=== PATIENT | female | born 1960 | race Caucasian/White ===

== ENCOUNTER 2018-05-15 14:11 | Emergency (ER) | payer SELFPAY | END 2018-05-15 14:21 | disposition home or self-care (01) | LOC: ERS 14:11 | DX: B02.9 Zoster without complications (principal); E03.9 Hypothyroidism, unspecified; E78.5 Hyperlipidemia, unspecified; I10 Essential (primary) hypertension; G47.30 Sleep apnea, unspecified; F32.9 Major depressive disorder, single episode, unspecified; Z79.899 Other long term (current) drug therapy | CPT/HCPCS: 99282 ==

== ENCOUNTER 2019-03-05 13:30 | Observation (INO) | payer OTHER, SELFPAY ==
[2019-03-05 14:04] LABS: #Eosinphils 0.2 thou/uL (0.0-0.7); #Lymphocytes 2.8 thou/uL (1.20-3.40); #Monocytes 0.5 thou/uL (0.11-0.59); #Neutrophils 4.7 thou/uL (1.40-6.50); %Basophils 0.5 % (0.0-1.0); %Eosinophils 2.6 % (0.0-10.0); %Lymphocytes 33.6 % (21.0-51.0); %Monocytes 6.3 % (0.0-10.0); %Neutrophils 56.9 % (42.0-75.0); Hemoglobin 14.6 g/dL (12.0-16.0); Mean Corpuscular HGB CONC 32.4 g/dL (32.0-36.0); Mean Corpuscular Hemoglobin 27.8 pg (27.0-31.0); Mean Corpuscular Volume 85.8 fL (78.0-98.0); Mean Platelet Volume 8.3 fL (7.4-10.4); Platelet Count 241 thou/uL (130-400); Red Blood Cell (RBC) Count 5.28 mill/uL (4.20-5.40); White Blood Cell (WBC) Count 8.2 thou/uL (4.8-10.8)
[2019-03-05 14:28] LABS: ALT (SGPT) 34 U/L (8-55); AST (SGOT) 27 U/L (5-34); Albumin 4.5 g/dL (3.5-5.0); Alkaline Phosphatase 76 U/L (40-150); Anion Gap 11 mmol/L (10-20); BUN (Urea Nitrogen) 21 mg/dL (9.8-20.1); Bilirubin, Total 0.4 mg/dL (0.2-1.2); Calc. Creatinine Clearance 0 mL/min (70-130); Calcium 10.3 mg/dL (7.8-10.44); Carbon Dioxide 26 mmol/L (22-29); Chloride 105 mmol/L (98-107); Estimated GFR-MDRD 60; Globulin 2.8 g/dL (2.4-3.5); Glucose 123 mg/dL (70-105); Potassium 3.8 mmol/L (3.5-5.1); Protein, Total 7.3 g/dL (6.0-8.3); Sodium 138 mmol/L (136-145)
--- NOTE | 2019-03-05 14:37 | RAD ---
PORTABLE CHEST 1 VIEW: Date: 03/05/19 Time: 1343 hours HISTORY: Chest pain. FINDINGS: There are no previous exams for comparison. The heart size is normal. No confluent areas of consolidation, pneumothoraces, or pleural effusions a re seen. IMPRESSION: No radiographic evidence of acute cardiopulmonary process. POS: OFF
[2019-03-05] MEDS ORDERED: Aspirin Chewable 81 MG TAB ONE (15:08)
[2019-03-05 17:15] LABS: Troponin I Less than 0.010 ng/mL (< 0.028)
[2019-03-05] MEDS ORDERED: Lidocaine 2% Viscous Solution 10 ML, Aluminum & Magnesium Hydroxide 30 ML SSW SCH (17:30)
[2019-03-05] MEDS ORDERED: Bisacodyl 5 MG TAB PO PRN (17:39)
[2019-03-05] MEDS ORDERED: Acetaminophen 325 MG TAB PO PRN (17:39)
[2019-03-05] MEDS ORDERED: NIFEdipine XL 60 MG TAB PO SCH (17:45)
--- NOTE | 2019-03-05 18:00 | HP ---
PRIMARY CARE PROVIDER: Dr. Alfonso Neri in [place]. CHIEF COMPLAINT: Epigastric pain. HISTORY OF PRESENT ILLNESS: Ms. Alvarado is a pleasant 58-year-old lady who was seen at [facility] on March 05, 2019. She reports that she started having epigastric pain yesterday. She describes it as a burning sensation. It was 10/10 at its worst, subsequently improved to 6/10. It was radiating to the back. It started around 9 p.m. when she could not lie down because of the pain. She also reports her diaphoresis. She denies any fevers or chills. She denies any nausea or vomiting. She never had this kind of pain in the past. She denies any shortness of breath or palpitations. REVIEW OF SYSTEMS: All other systems were reviewed and found to be negative. PAST MEDICAL HISTORY: Hypothyroidism, dyslipidemia, hypertension, and obstructive sleep apnea syndrome. PAST SURGICAL HISTORY: Carpal tunnel surgery, third left foot digit surgery, hysterectomy, and tubal ligation. PSYCHIATRIC HISTORY: Depression. SOCIAL HISTORY: The patient denies tobacco use, alcohol use, or recreational drug use. FAMILY HISTORY: Heart problems in her mother's side of family. ALLERGIES: NO KNOWN DRUG ALLERGIES. CURRENT MEDICATIONS: 1. Aspirin 81 mg daily. 2. Levothyroxine 50 mcg daily. 3. Lisinopril/hydrochlorothiazide 100/12.5 mg daily. 4. Trazodone 50 mg at bedtime. 5. Duloxetine 60 mg 2 times a day. PHYSICAL EXAMINATION: GENERAL: On examination, Ms. Alvarado is awake and alert, not in acute distress. VITAL SIGNS: Blood pressure is 128/79, pulse 63, respiratory rate 16, and oxygen saturation 95% on room air. She is afebrile. HEENT: Eyes, no scleral icterus, no conjunctival pallor. ENT, moist mucosal membranes. No oropharyngeal erythema or exudates. NECK: Supple, nontender, trachea is midline. RESPIRATORY: Accessory muscles of breathing are not active. Chest wall movements are symmetric bilaterally. Lungs are clear to auscultation without wheeze, rhonchi, or crepitations. CARDIOVASCULAR: S1 and S2 are heard, regular. Peripheral pulses palpable. No carotid bruit. No pericardial rub. ABDOMEN: Mild epigastric tenderness. No guarding or rigidity. Bowel sounds heard, no hepatomegaly, no splenomegaly. NEUROLOGIC: Cranial nerves 2 through 12 intact, deep tendon reflexes 2+. MUSCULOSKELETAL: Power is 5/5 in all 4 extremities. SKIN: No rashes or subcutaneous nodules. She has bilateral lower extremity edema. LYMPHATIC: No cervical lymphadenopathy. PSYCHIATRIC: Normal mood, normal affect, the patient is oriented to person, place, and time. LABORATORY DATA: Ms. Alvarado'akil labs and investigations were reviewed. I reviewed her electrocardiogram which shows normal sinus rhythm, no ST changes to suggest acute coronary syndrome. I also reviewed her chest x-ray which does not show any pulmonary infiltrates. She has normal CBC, unremarkable comprehensive metabolic profile, and troponin-I that is negative x2. Lipase is normal. ASSESSMENT AND PLAN: Ms. Alvarado is a pleasant 58-year-old lady who was seen at [facility] on March 05, 2019. Her problem list includes: 1. Epigastric pain: Ms. Alvarado is presenting with epigastric pain of 1 day duration, etiology is unclear at this time. Most likely secondary to gastritis, will trial GI cocktail. Alternatively, could be atypical presentation of acute coronary syndrome, will check stress test. Differential also includes acute pancreatitis, although the lipase level is normal. We will check upper abdominal ultrasound to rule out any pancreatic or gallbladder lesions. 2. Hypothyroidism: Continue Synthroid. 3. Hypertension: Continue home medications, monitor vital signs, and titrate antihypertensives as needed. 4. Depression: Moderate, stable, continue duloxetine. Many thanks for allowing me to participate in your patient's care. Please feel free to contact me with any questions or concerns. LEVEL OF RISK: High. LEVEL OF COMPLEXITY: High. Job ID: [id number]
[2019-03-05 18:04] VITALS: BMI 37.0
[2019-03-05 20:28] LABS: Troponin I Less than 0.010 ng/mL (< 0.028)
[2019-03-05] MEDS ORDERED: traZODone HCl 50 MG TAB PO SCH (21:00)
[2019-03-05] MEDS ORDERED: hydrALAZINE 25 MG TAB PO SCH (21:00)
[2019-03-05] MEDS ORDERED: Isosorbide Dinitrate 20 MG TAB PO SCH (21:00)
[2019-03-06 04:51] LABS: #Eosinphils 0.2 thou/uL (0.0-0.7); #Monocytes 0.5 thou/uL (0.11-0.59); #Neutrophils 3.1 thou/uL (1.40-6.50); %Basophils 0.8 % (0.0-1.0); %Eosinophils 3.1 % (0.0-10.0); %Lymphocytes 34.8 % (21.0-51.0); %Monocytes 7.8 % (0.0-10.0); %Neutrophils 53.4 % (42.0-75.0); Hemoglobin 14.6 g/dL (12.0-16.0); Mean Corpuscular HGB CONC 32.3 g/dL (32.0-36.0); Mean Corpuscular Hemoglobin 28.1 pg (27.0-31.0); Mean Corpuscular Volume 87.1 fL (78.0-98.0); Mean Platelet Volume 8.4 fL (7.4-10.4); Platelet Count 222 thou/uL (130-400); White Blood Cell (WBC) Count 5.8 thou/uL (4.8-10.8)
[2019-03-06 05:11] LABS: Anion Gap 11 mmol/L (10-20); BUN (Urea Nitrogen) 18 mg/dL (9.8-20.1); Calc. Creatinine Clearance 116 mL/min (70-130); Calcium 9.7 mg/dL (7.8-10.44); Carbon Dioxide 29 mmol/L (22-29); Chloride 103 mmol/L (98-107); Estimated GFR-MDRD 68; Glucose 140 mg/dL (70-105); Potassium 4.4 mmol/L (3.5-5.1); Sodium 139 mmol/L (136-145)
[2019-03-06] MEDS ORDERED: Levothyroxine Sodium 50 MCG TAB PO SCH (06:00)
[2019-03-06] MEDS ORDERED: Carvedilol 25 MG TAB PO SCH (08:00)
[2019-03-06 08:20] VITALS: TEMP 98.1
--- NOTE | 2019-03-06 08:23 | ULT ---
GALLBLADDER ULTRASOUND: CLINICAL HISTORY: Epigastric pain. COMPARISON: No prior comparison. FINDINGS: No focal hepatic lesion. The gallbladder is unremarkable. No evidence of ascites. The common duct measures 3 mm in caliber. There is increased echogenicity of the hepatic parenchyma. IMPRESSION: 1. No acute gallbladder pathology. 2. Findings which may relate to hepatic steatosis. Correlate with liver function enzymes. POS: LAURAK
[2019-03-06] MEDS ORDERED: Losartan 25 MG TAB PO SCH (09:00)
[2019-03-06] MEDS ORDERED: Aspirin 325 mg Enteric Coated Tablet PO SCH (09:00)
[2019-03-06] MEDS ORDERED: DULoxetine 60 MG CAP PO SCH (09:00)
[2019-03-06] MEDS ORDERED: Aspirin 81 mg Enteric Coated Tablet PO SCH (09:00)
[2019-03-06] MEDS ORDERED: Hydrochlorothiazide 25 MG TAB PO SCH (09:00)
[2019-03-06] MEDS ORDERED: NIFEdipine XL 60 MG TAB PO SCH (09:00)
[2019-03-06] MEDS ORDERED: Lisinopril 10 MG TAB PO SCH (09:00)
--- NOTE | 2019-03-06 13:52 | NM ---
MYOCARDIAL PERFUSION SCAN WITH STRESS IMAGING: HISTORY: Chest pain. Examination was done as a stress-only study using 31.8 mCi 99m Technetium sestamibi. This shows a no rmal distribution of the radiopharmaceutical without signs of ischemia. WALL MOTION: There is symmetric contractility to the ventricle. LEFT VENTRICULAR EJECTION FRACTION: The calculated left ventricular ejection fraction was 73%. IMPRESSION: Unremarkable myocardial perfusion scan. POS: OFF
[2019-03-06 16:19] VITALS: BP 118/57
--- NOTE | 2019-03-07 08:46 | DIS ---
DATE OF ADMISSION: 03/05/2019 DATE OF DISCHARGE: 03/06/2019 PRIMARY CARE PROVIDER: Dr. Hamilton Head. DISCHARGE DIAGNOSIS: Chest pain, most likely secondary to musculoskeletal etiology. CONDITION OF PATIENT ON THE DAY OF DISCHARGE: Stable. I assessed Ms. Alvarado on the day of discharge. She denies any chest pain or shortness of breath. Vital signs are stable. S1 and S2 are heard, regular. Lungs are clear to auscultation bilaterally. DISCHARGE MEDICATIONS: . Abdominal ultrasound showed hepatic steatosis and no acute gallbladder pathology. Her pain resolved. She is being discharged home in a stable condition. FOLLOWUP APPOINTMENTS: She has been advised to follow up with her primary care provider. On the day of discharge, she has a normal CBC and an unremarkable Chem-7. Many thanks for allowing me to participate in your patient's care. Please feel free to contact me with any questions or concerns. DISCHARGE DESTINATION: Home. FOLLOWUP APPOINTMENTS: With primary care provider in 3 days' time. Job ID: [id number] MTDD
--- NOTE | 2019-03-10 15:21 | EKG ---
Test Reason : Blood Pressure : / mmHG Vent. Rate : 073 BPM Atrial Rate : 073 BPM P-R Int : 186 ms QRS Dur : 080 ms QT Int : 364 ms P-R-T Axes : 063 008 041 degrees QTc Int : 401 ms Normal sinus rhythm Possible Left atrial enlargement Septal infarct , age undetermined Abnormal ECG Confirmed by KRISTOPHER BARRY DO ([id number]), book editor VIDAL TOMPKINS ([id number] on 03/10/2019 3:21:11 PM Referred By: Confirmed By:KRISTOPHER BARRY DO
[2019-03-12] MEDS ORDERED: cloNIDine 0.2mg/24 Hour PATCH TD SCH (09:00)
== END 2019-03-06 17:46 | disposition home or self-care (01) ==
LOC: ERS 13:30 → 2SW 15:22
PROVIDERS: ADMIT Internal Medicine; ATTEND Internal Medicine
DX: R07.9 Chest pain, unspecified (principal); R10.13 Epigastric pain; K76.0 Fatty (change of) liver, not elsewhere classified; E03.9 Hypothyroidism, unspecified; E78.5 Hyperlipidemia, unspecified; I10 Essential (primary) hypertension; G47.33 Obstructive sleep apnea (adult) (pediatric); F32.9 Major depressive disorder, single episode, unspecified; Z79.82 Long term (current) use of aspirin; Z79.899 Other long term (current) drug therapy
CPT/HCPCS: 36415; 71045; 76705; 78452; 80048; 80053; 83690; 84484; 85025; 85379; 93005; 93017; 94760; A9500; G0378; J0153

== ENCOUNTER 2020-09-20 11:01 | Emergency (ER) | payer OTHER ==
[2020-09-20] MEDS ORDERED: Ketorolac Tromethamine 30 MG/ML VIAL ONE (14:01)
[2020-09-20] MEDS ORDERED: Diazepam 5 MG TAB ONE (14:01)
== END 2020-09-20 14:00 | disposition home or self-care (01) ==
LOC: ERS 11:01
DX: M54.5 Low back pain (principal); E03.9 Hypothyroidism, unspecified; E78.5 Hyperlipidemia, unspecified; E78.00 Pure hypercholesterolemia, unspecified; I10 Essential (primary) hypertension; G47.30 Sleep apnea, unspecified; Z79.82 Long term (current) use of aspirin; Z79.899 Other long term (current) drug therapy
CPT/HCPCS: 96372; 99283; J1885

== ENCOUNTER 2022-04-29 09:01 | Emergency (ER) | payer OTHER | END 2022-04-29 13:14 | disposition home or self-care (01) | LOC: ERS 09:01 | DX: M25.561 Pain in right knee (principal); I10 Essential (primary) hypertension; E03.9 Hypothyroidism, unspecified; E78.00 Pure hypercholesterolemia, unspecified; G47.30 Sleep apnea, unspecified; Z79.82 Long term (current) use of aspirin; Z79.899 Other long term (current) drug therapy ==